=== PATIENT | male | born 1980 | race Caucasian/White ===

== ENCOUNTER → 2023-05-08 11:44 | Outpatient (CLI) | payer BC, SELFPAY ==
[2023-05-08 16:35] LABS: Barbiturates Screen,Urine Negative ng/ml (<200); Benzodiazepines Screen,Urine Negative ng/ml (<200)
[2023-05-08 16:36] LABS: Amphetamine/Metha Screen,Urine Negative ng/ml (<1000); Cannabinoid Screen,Urine Negative ng/ml (<50)
[2023-05-08 16:37] LABS: Cocaine Screen,Urine Negative ng/ml (<300)
[2023-05-08 16:38] LABS: Methadone Screen,Urine Negative ng/ml (<300); Opiate Screen,Urine Negative ng/ml (<300)
[2023-05-08 16:39] LABS: Phencyclidine Screen,Urine Negative ng/ml (<25)
== END ==
PROVIDERS: PCP Family Medicine; Visit Provider Nurse Practitioner Psychiatric/Mental Health
DX: Z51.81 Encounter for therapeutic drug level monitoring (principal); Z79.899 Other long term (current) drug therapy
CPT/HCPCS: 80305

== ENCOUNTER → 2023-06-19 10:29 | Outpatient (CLI) | payer BC, SELFPAY ==
[2023-06-19 21:56] LABS: Amphetamine/Metha Screen,Urine Negative ng/ml (<1000)
[2023-06-19 21:58] LABS: Cannabinoid Screen,Urine Negative ng/ml (<50)
[2023-06-19 21:59] LABS: Barbiturates Screen,Urine Negative ng/ml (<200); Benzodiazepines Screen,Urine Negative ng/ml (<200)
[2023-06-19 22:00] LABS: Cocaine Screen,Urine Negative ng/ml (<300)
[2023-06-19 22:01] LABS: Methadone Screen,Urine Negative ng/ml (<300)
[2023-06-19 22:02] LABS: Opiate Screen,Urine Negative ng/ml (<300); Phencyclidine Screen,Urine Negative ng/ml (<25)
== END ==
PROVIDERS: PCP Family Medicine; Visit Provider Nurse Practitioner Psychiatric/Mental Health
DX: Z79.899 Other long term (current) drug therapy (principal)
CPT/HCPCS: 80305